=== PATIENT | male | born 1950 | race Caucasian/White ===

== ENCOUNTER → 2020-08-09 09:33 | Outpatient (CLI) | payer MEDICARE, BC, SELFPAY ==
--- NOTE | ~2020-08-09 | XR_ITS ---
XR knee LT min 4V DATE: 08/09/2020 10:00 INDICATION: Posterior left knee pain TECHNIQUE: 4 views COMPARISON: None FINDINGS: There is enthesopathy of the superior pole of patella at the quadriceps tendon insertion. There is minimal periarticular spurring at the patellofemoral joint. No fracture or dislocation or joint effusion. No periosteal reaction or bone destruction. No radiopaq ue intra-articular loose body or chondrocalcinosis. 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 [facility] MAN
== END ==
PROVIDERS: PCP Family Medicine Adolescent Medicine; Visit Provider Family Medicine Adolescent Medicine
DX: M25.562 Pain in left knee (principal); M17.12 Unilateral primary osteoarthritis, left knee
CPT/HCPCS: 73564

== ENCOUNTER 2023-09-23 10:44 | Outpatient (CLI) | payer MEDICARE, BC, SELFPAY ==
--- NOTE | ~2023-09-23 | XR_ITS ---
XR_[id number]_CR DATE: 09/23/2023 11:04 INDICATION: Persistent neck pain TECHNIQUE: AP, open-mouth, lateral views COMPARISON: None FINDINGS: There is straightening of cervical spine, likely due to muscle spasm. Moderately severe degenerative disc disease and mild anterolisthesis at C2-3. Severe degenerative disc disease at C3-4, C4-5, C6-7. Moderately severe degenerative disease at C5-6. There is associated minimal retrolisthesis at C3-4, C4-5. There is prominent uncovertebral joint spurring in the mid and lower cervical spine, especially promi nent on the left at C3-4. Minimal anterolisthesis at C5-6. There is degenerative change of the apophyseal joints. C1 and C2 are normally aligned and the odontoid process is intact. No fracture or dislocation or lock ed facet or prevertebral soft tissue swelling is detected. IMPRESSION: Straightening of cervical spine which may be due to muscle spasm Prominent cervical spondylosis Reviewed, dictated and finalized at Location A. Reviewed, dictated and finalized at location B.
== END 2023-09-23 10:45 ==
PROVIDERS: PCP Family Medicine Adolescent Medicine; Visit Provider Family Medicine Adolescent Medicine
DX: M47.892 Other spondylosis, cervical region (principal)
CPT/HCPCS: 72040